=== PATIENT | male | born 1950 | race Asian ===

== ENCOUNTER 2016-03-09 18:43 | Emergency (ER) | payer SELFPAY ==
[~2016-03-09] VITALS: Ht 177.8 cm; Wt 89.0 kg
[2016-03-09 19:30] VITALS: BP 134/82; PULSE 69; RESP 16; O2SAT 99
== END 2016-03-09 20:54 | disposition left against medical advice (07) ==
LOC: SED 18:43
DX: R53.1 Weakness (principal)